=== PATIENT | female | born 1980 | race Caucasian/White ===

== ENCOUNTER 2017-02-20 21:18 | Emergency (ER) | payer SELFPAY ==
[2017-02-20 21:33] VITALS: BP 140/82; PULSE 81; RESP 20; TEMP 99.4; O2SAT 96
[2017-02-20] MEDS ORDERED: Sodium Chloride 0.9% 1,000 ML IV STA (21:56)
[2017-02-20] MEDS ORDERED: cefTRIAXone (Rocephin) 1 gm Inj ONE (22:18)
[2017-02-20 22:22] LABS: BASO # 0.1 K/uL (0.0-0.2); BASO % 0.7 % (0.0-2.0); EOS # 0.1 K/uL (0.0-0.7); EOS % 0.6 % (0.0-4.0); HEMATOCRIT 40.1 % (34.0-47.0); LYMPH # 3.9 K/uL (1.0-4.3); LYMPH % 27.1 % (20.0-40.0); MEAN CELL VOLUME 85.8 fl (81.0-99.0); MEAN CORPUSCULAR HGB CONC 32.7 g/dL (33.0-37.0); MEAN PLATELET VOLUME 11.1 fl (7.2-11.7); MONO # 1.1 K/uL (0.0-0.8); MONO % 7.6 % (0.0-10.0); NEUT # 9.2 K/uL (1.8-7.0); WHITE BLOOD COUNT 14.4 K/uL (4.8-10.8)
[2017-02-20 22:31] LABS: ALB/GLOB RATIO 1.2 (1.0-2.1); ALKALINE PHOSPHATASE 68 U/L (38-126); ALT/SGPT 35 U/L (9-52); AST/SGOT 17 U/L (14-36); BILIRUBIN,TOTAL 0.6 mg/dl (0.2-1.3); BLOOD UREA NITROGEN 12 mg/dl (7-17); CALCIUM 9.5 mg/dL (8.4-10.2); CARBON DIOXIDE 25 mmol/L (22-30); GFR AFRICAN-AMERICAN > 60; GLUCOSE,RANDOM 125 mg/dL (65-105); POTASSIUM 3.8 MMOL/L (3.6-5.0); SODIUM 136 mmol/l (132-148); TOTAL PROTEIN 7.3 G/DL (6.3-8.2)
[2017-02-20 22:34] LABS: VENOUS BLOOD GAS PCO2 44 mmHg (40-60); VENOUS BLOOD PH 7.44 (7.32-7.43)
[2017-02-20 22:40] LABS: RBC URINE 16 /hpf (0-3); URINE BACTERIA RARE (<OCC); URINE BILIRUBIN NEGATIVE (NEGATIVE); URINE BLOOD SMALL (NEGATIVE); URINE COLOR AMBER (YELLOW); URINE GLUCOSE (UA) NEG (Normal); URINE KETONE NEGATIVE (NEGATIVE); URINE LEUKOCYTE ESTERASE MOD Leu/uL (Negative); URINE PROTEIN NEGATIVE (NEGATIVE); WBC URINE 63 /hpf (0-5)
--- NOTE | 2017-02-20 22:46 | ED PDOC ---
HPI: Abdomen Time Seen by Provider: 02/20/17 21:44 Chief Complaint (Nursing): Abdominal Pain Chief Complaint (Provider): Lower abdominal pain History Per: Patient History/Exam Limitations: no limitations Onset/Duration Of Symptoms: Days Outside of [place] travel?: No Current Symptoms Are (Timing): Still Present Location Of Pain/Discomfort: RLQ, LLQ Additional Complaint(s): The patient is a 36yo female, presents to the ED for evaluation of constant lower abdominal pain, worsening over the past two days, associated with dysuria and frequency. She reports her pain is worse on the right side and radiates to her right back. Patient also reports associated chills and nausea, but denies any fever, vomiting, diarrhea, constipation, vaginal discharge or bleeding. Patient offers no additional medical complaints. PCP: Dr. Srikanth Cueto Abnormal Vaginal Bleeding: No Past Medical History Reviewed: Historical Data, Nursing Documentation, Vital Signs Vital Signs: Last Vital Signs Temp 99.4 F 02/20/17 21:31 Pulse 81 02/20/17 21:31 Resp 20 02/20/17 21:31 BP 140/82 02/20/17 21:31 Pulse Ox 96 02/20/17 23:45 - Medical History PMH: No Chronic Diseases - Surgical History Surgical History: No Surg Hx - Family History Family History: States: Unknown Family Hx - Social History Current smoker - smoking cessation education provided: No Alcohol: None Drugs: Denies - Immunization History Hx Tetanus Toxoid Vaccination: No Hx Influenza Vaccination: No Hx Pneumococcal Vaccination: No - Home Medications Home Medications: Ambulatory Orders Medication Instructions Recorded Azithromycin 250 mg PO DAILY #6 tab 05/08/15 Guaifenesin/Codeine Phosphate 10 ml PO Q4H PRN #150 ml 05/08/15 [Guiatuss AC 10 mg/5 ml-100 mg/5 ml 240 ml] Valacyclovir HCl [Valtrex] 1 gm PO Q12 #20 tablet 09/23/15 traMADol [Ultram] 50 mg PO Q6 PRN #10 tab 09/23/15 Nitrofurantoin Macrocrystals 100 mg PO BID #14 cap 11/03/15 [Macrobid] Phenazopyridine [Pyridium] 100 mg PO BID #6 tab 11/03/15 Ciprofloxacin HCl [Cipro] 500 mg PO BID #20 tab 02/20/17 Naproxen [Naprosyn] 1 tab PO BID PRN #60 tab 02/20/17 traMADol [Ultram] 50 mg PO TID PRN #15 tab 02/20/17 - Allergies Allergies/Adverse Reactions: Allergies Allergy/AdvReac Type Severity Reaction Status Date / Time No Known Allergies Allergy Verified 05/08/15 19:17 Review of Systems ROS Statement: Except As Marked, All Systems Reviewed And Found Negative Constitutional: Positive for: Chills. Negative for: Fever Gastrointestinal: Positive for: Nausea, Abdominal Pain. Negative for: Vomiting , Diarrhea, Constipation Genitourinary Female: Positive for: Dysuria, Frequency. Negative for: Vaginal Discharge, Vaginal Bleeding Physical Exam - Reviewed Nursing Documentation Reviewed: Yes Vital Signs Reviewed: Yes - Physical Exam Appears: Positive for: Well, Non-toxic, No Acute Distress Head Exam: Positive for: ATRAUMATIC, NORMAL INSPECTION, NORMOCEPHALIC Skin: Positive for: Warm, Dry ENT: Positive for: Other (dry muc membranes). Negative for: Pharyngeal Erythema , Tonsillar Exudate Neck: Positive for: Painless ROM, Supple Cardiovascular/Chest: Positive for: Regular Rate, Rhythm, Chest Non Tender. Negative for: Murmur Respiratory: Positive for: Normal Breath Sounds. Negative for: Wheezing Gastrointestinal/Abdominal: Positive for: Soft, Tenderness. Negative for: Mass , Distended, Guarding, Rebound Back: Positive for: R CVA Tenderness. Negative for: Vertebral Tenderness Extremity: Positive for: Normal ROM. Negative for: Deformity Lymphatic: Negative for: Adenopathy Neurologic/Psych: Positive for: Alert. Negative for: Motor/Sensory Deficits - Laboratory Results Result Diagrams: 02/20/17 22:17 02/20/17 22:17 - ECG O2 Sat by Pulse Oximetry: 96 (RA) Pulse Ox Interpretation: Normal Medical Decision Making Medical Decision Making: Time: 2200 Impression: UTI and flank pain Plan: -- CT AP -- Labs -- Tylenol -- Zofran -- Toradol -- IV Fluids -- IV Rocephin -- Urine culture -- Blood culture Reassess Labs c/w pyelonephritis. No findings of sepsis EXAM: CT Abdomen and Pelvis Without Intravenous Contrast CLINICAL HISTORY: The patient is a 36 years female; Pain; Abdominal pain; Flank; Right; Additional info: Right flank pain. Sent phy. Doc. 02/20/2017 9:55 PM TECHNIQUE: Axial computed tomography images of the abdomen and pelvis without intravenous contrast. All CT scans at this facility use one or more dose reduction techniques, viz.: automated exposure control; ma/kV adjustment per patient size (including targeted exams where dose is matched to indication; i.e. head); or iterative reconstruction technique. Coronal and sagittal reformatted images were created and reviewed. COMPARISON: No relevant prior studies available. FINDINGS: Limitations: Lack of intravenous contrast limits evaluation for pathology. Lower thorax: <No significant pleural effusions.> ABDOMEN: Liver: Unremarkable. Gallbladder and bile ducts: Unremarkable. No calcified stones. No ductal dilation. Pancreas: Unremarkable. No ductal dilation. Spleen: Unremarkable. No splenomegaly. Adrenals: Unremarkable. No mass. Kidneys and ureters: Right periureteral fat stranding is noted, this could be due to recent passage of calculus versus urinary tract infection. No obstructing stones. No bilateral hydronephrosis. Stomach and bowel: Unremarkable. No dilated bowel loops. Appendix: No findings to suggest acute appendicitis. PELVIS: Bladder: Partially contracted Reproductive: Hypodensity in the uterus, correlate with menstrual history.. ABDOMEN and PELVIS: Intraperitoneal space: Unremarkable. No free air. No significant fluid collection. Bones/joints: No acute fracture. No dislocation. Soft tissues: Moderate fat containing umbilical hernia. Vasculature: See above. Lymph nodes: Unremarkable. No enlarged lymph nodes. IMPRESSION: 1. Lack of intravenous contrast limits evaluation for pathology. 2. Right periureteral fat stranding is noted, this could be due to recent passage of calculus versus urinary tract infection. Clinical correlation is recommended. Thank you for allowing us to participate in the care of your patient. Dictated and Authenticated by: Diana Morrell MD 02/20/2017 11:11 PM Eastern Time ([place] & [place]) Scribe Attestation: Documented by Johana Sullivan acting as a scribe for Nai Garcia MD. Provider Attestation: All medical record entries made by the Scribe were at my direction and personally dictated by me. I have reviewed the chart and agree that the record accurately reflects my personal performance of the history, physical exam, medical decision making, and the department course for this patient. I have also personally directed, reviewed, and agree with the discharge instructions and disposition. Disposition - Clinical Impression Clinical Impression: Pyelonephritis Counseled Patient/Family Regarding: Studies Performed, Diagnosis, Need For Followup, Rx Given - Disposition Referrals: [facility] [Outside] [facility] [Outside] Disposition: Routine/Home Disposition Time: 23:00 Condition: IMPROVED Prescriptions: Ciprofloxacin HCl [Cipro] 500 mg PO BID #20 tab Naproxen [Naprosyn] 1 tab PO BID PRN #60 tab PRN Reason: Pain traMADol [Ultram] 50 mg PO TID PRN #15 tab PRN Reason: SEVERE PAIN ONLY Instructions: Acute Pyelonephritis (ED) Forms: [facility] ED School/Work Excuse Print Language: IRISH
[2017-02-20 22:50] LABS: CHLORIDE 100 mmol/L (98-107)
--- NOTE | 2017-02-21 07:33 | CT ---
PROCEDURE: CT Abdomen and Pelvis without intravenous contrast HISTORY: RIGHT flank pain COMPARISON: None. TECHNIQUE: Technique. Contrast Dose: None Radiation dose: Total exam DLP = 998 mGy-cm. This CT exam was performed using one or more of the following dose reduction techniques: Automated exposure control, adjustment of the mA and/or kV according to patient size, and/or use of iterative reconstruction technique. FINDINGS: LOWER THORAX: Unremarkable. LIVER: Unremarkable. No gross lesion or ductal dilatation. GALLBLADDER AND BILE DUCTS: Gallbladder is decompressed. No radiodense cholelithiasis associated. PANCREAS: Unremarkable. No gross lesion or ductal dilatation. SPLEEN: Unremarkable. ADRENALS: Unremarkable. No mass. KIDNEYS AND URETERS: There is no radiodense urolithiasis appreciated bilaterally or obstructive uropathy. No perinephric fluid collections appreciate bilaterally either. Kidneys appear normal in size overall and the bilateral ureters are normal in caliber as imaged. VASCULATURE: Unremarkable. No aortic aneurysm. BOWEL: The stomach is mildly distended with retained food. No obstruction. No gross mural thickening. APPENDIX: Unremarkable. Normal appendix. PERITONEUM: Unremarkable. No free fluid. No free air. LYMPH NODES: Shotty pericecal lymph nodes are identified. No prominently enlarged lymph nodes are noted in the mesenteric or retroperitoneum. BLADDER: Urinary bladder is essentially decompressed and unremarkable. No radiodense urolithiasis associated. REPRODUCTIVE: Trace fluid is questioned in the endometrial cavity. No prominent suspicious adnexal findings bilaterally. BONES: No acute fracture. OTHER FINDINGS: A small umbilical hernia is identified with the neck measuring 9 mm containing only fat and no bowel. IMPRESSION: 1. No radiodense urolithiasis, obstructive obstructive uropathy or perinephric reaction bilaterally. Urinary bladder is decompressed and unremarkable appearing otherwise. 2. Trace fluid is questioned endometrial cavity. Clinically correlate further. 3. A small fat containing abdominal hernia is appreciated without bowel involvement. Concordant preliminary report by [employer] cynthia performed 02/20/2017.
== END 2017-02-21 00:17 | disposition home or self-care (01) ==
LOC: H.ER 21:18
DX: N10 Acute pyelonephritis (principal)
CPT/HCPCS: 74176; 80053; 81003; 81025; 82803; 85025; 87040; 87086; 96365; 96366; 96368; 96375; 99283; J0696; J1885; J2405; J7040

== ENCOUNTER 2017-07-28 14:25 | Emergency (ER) | payer SELFPAY ==
[2017-07-28 14:35] VITALS: BMI 32.9
[2017-07-28] MEDS ORDERED: Sodium Chloride 0.9% 1,000 ML IV STA (15:09)
--- NOTE | 2017-07-28 15:12 | ED PDOC ---
HPI: CCC, URI, Sore Throat Time Seen by Provider: 07/28/17 14:57 Chief Complaint (Nursing): Fever Chief Complaint (Provider): Generalized malaise, cough History Per: Patient History/Exam Limitations: no limitations Have you had recent travel within the past 21 days to any of the following countries: [place], [place], [place] or [place]?: No Onset/Duration Of Symptoms: Days Current Symptoms Are (Timing): Still Present Additional History Per: Patient Additional Complaint(s): 36yo female no past medical history, presents to ED with complaints of fever, cough, chest pain due to cough, post-tussive vomiting and congestion for the past 3 days. Patient reports the cough is associated with green sputum. States she saw her PCP and has been taking medications with no relief of her symptoms. Denies any abdominal pain, nausea, vomiting, diarrhea, shortness of breath. No other complaints. PCP: Dr. Cueto Past Medical History Reviewed: Historical Data, Nursing Documentation, Vital Signs Vital Signs: Last Vital Signs Temp 100.7 F H 07/28/17 17:46 Pulse 135 H 07/28/17 14:33 Resp 22 07/28/17 14:33 BP 140/82 07/28/17 14:33 Pulse Ox 98 07/28/17 15:14 - Medical History PMH: No Chronic Diseases Denies: Diabetes, HTN - Surgical History Surgical History: No Surg Hx - Family History Family History: States: Unknown Family Hx - Social History Current smoker - smoking cessation education provided: No Alcohol: None Drugs: Denies - Immunization History Hx Tetanus Toxoid Vaccination: No Hx Influenza Vaccination: No Hx Pneumococcal Vaccination: No - Home Medications Home Medications: Ambulatory Orders Medication Instructions Recorded Azithromycin 250 mg PO DAILY #6 tab 05/08/15 Guaifenesin/Codeine Phosphate 10 ml PO Q4H PRN #150 ml 05/08/15 [Guiatuss AC 10 mg/5 ml-100 mg/5 ml 240 ml] Valacyclovir HCl [Valtrex] 1 gm PO Q12 #20 tablet 09/23/15 traMADol [Ultram] 50 mg PO Q6 PRN #10 tab 09/23/15 Nitrofurantoin Macrocrystals 100 mg PO BID #14 cap 11/03/15 [Macrobid] Phenazopyridine [Pyridium] 100 mg PO BID #6 tab 11/03/15 Ciprofloxacin HCl [Cipro] 500 mg PO BID #20 tab 02/20/17 Naproxen [Naprosyn] 1 tab PO BID PRN #60 tab 02/20/17 traMADol [Ultram] 50 mg PO TID PRN #15 tab 02/20/17 Benzonatate [Tessalon Perles] 100 mg PO BID PRN 5 Days sgl 07/28/17 Ibuprofen [Motrin] 600 mg PO TID 7 Days tab 07/28/17 Oseltamivir Phosphate [Tamiflu] 75 mg PO BID 5 Days capsule 07/28/17 - Allergies Allergies/Adverse Reactions: Allergies Allergy/AdvReac Type Severity Reaction Status Date / Time No Known Allergies Allergy Verified 07/28/17 14:32 Review of Systems ROS Statement: Except As Marked, All Systems Reviewed And Found Negative Constitutional: Positive for: Fever, Weakness, Malaise Cardiovascular: Positive for: Chest Pain Respiratory: Positive for: Cough, Sputum (green) Gastrointestinal: Positive for: Vomiting (post tussive). Negative for: Nausea, Abdominal Pain, Diarrhea Physical Exam - Reviewed Nursing Documentation Reviewed: Yes Vital Signs Reviewed: Yes - Physical Exam Appears: Positive for: Non-toxic Head Exam: Positive for: ATRAUMATIC, NORMAL INSPECTION, NORMOCEPHALIC Skin: Positive for: Normal Color Eye Exam: Positive for: EOMI, PERRL ENT: Positive for: Nasal Congestion, Pharyngeal Erythema. Negative for: Tonsillar Exudate, Tonsillar Swelling Neck: Positive for: Supple Cardiovascular/Chest: Positive for: Regular Rate, Rhythm (tachycardic) Respiratory: Positive for: Normal Breath Sounds. Negative for: Wheezing Gastrointestinal/Abdominal: Positive for: Normal Exam, Soft. Negative for: Tenderness, Guarding, Rebound Back: Positive for: Normal Inspection. Negative for: L CVA Tenderness, R CVA Tenderness Extremity: Positive for: Normal ROM. 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 Negative for: Motor/Sensory Deficits - Laboratory Results Result Diagrams: 07/28/17 16:30 07/28/17 16:30 Interpretation Of Abn Labs: no acute - ECG ECG: Positive for: Interpreted By Me, Viewed By Me ECG Rhythm: Positive for: Sinus Tachycardia. Negative for: ST/T Changes O2 Sat by Pulse Oximetry: 98 (RA) Pulse Ox Interpretation: Normal - Radiology X-Ray: Read By Radiologist X-Ray Interpretation: No Acute Disease - Progress ED Course And Treament: 1859: Stable. AAOx3. Pain free. Tolerated PO. Medical Decision Making Medical Decision Making: Impression: Flu like symptoms Plan: -- IV Fluids -- Labs -- Chest x-ray -- Tessalon perles 100mg PO -- Toradol 15mg IVP -- Rapid flu -- Rapid strep Scribe Attestation: Documented by Johana Sullivan acting as a scribe for Fredis Sharma MD. Provider Attestation: All medical record entries made by the Scribe were at my direction and personally dictated by me. I have reviewed the chart and agree that the record accurately reflects my personal performance of the history, physical exam, medical decision making, and the department course for this patient. I have also personally directed, reviewed, and agree with the discharge instructions and disposition. Disposition - Clinical Impression Clinical Impression: URI (upper respiratory infection) - Patient ED Disposition Is Patient to be Admitted: No Counseled Patient/Family Regarding: Studies Performed, Diagnosis, Need For Followup, Rx Given - Disposition Referrals: [facility] [Outside] - 07/31/17 Disposition: Routine/Home Disposition Time: 19:00 Condition: STABLE Additional Instructions: Return if not better in 3 days. Prescriptions: Benzonatate [Tessalon Perles] 100 mg PO BID PRN 5 Days sgl PRN Reason: Cough Ibuprofen [Motrin] 600 mg PO TID 7 Days tab Oseltamivir Phosphate [Tamiflu] 75 mg PO BID 5 Days capsule Instructions: Upper Respiratory Infection (ED) Print Language: SOUTH SUDANESE
--- NOTE | 2017-07-28 17:31 | RAD ---
HISTORY: dyspnea COMPARISON: Comparison is made with 05/08/2015 FINDINGS: LUNGS: No active pulmonary disease. PLEURA: No significant pleural effusion identified, no pneumothorax apparent. CARDIOVASCULAR: Normal. OSSEOUS STRUCTURES: No significant abnormalities. VISUALIZED UPPER ABDOMEN: Normal. OTHER FINDINGS: None. IMPRESSION: No active disease.
[2017-07-28 17:56] LABS: BASO % 0.4 % (0.0-2.0); EOS % 0.1 % (0.0-4.0); HEMOGLOBIN 13.5 g/dL (12.0-16.0); LYMPH # 0.9 K/uL (1.0-4.3); LYMPH % 8.3 % (20.0-40.0); MEAN CELL VOLUME 84.1 fl (81.0-99.0); MEAN CORPUSCULAR HEMOGLOBIN 28.2 pg (27.0-31.0); MEAN CORPUSCULAR HGB CONC 33.6 g/dL (33.0-37.0); MONO # 0.8 K/uL (0.0-0.8); MONO % 7.5 % (0.0-10.0); NEUT # 9.2 K/uL (1.8-7.0); NEUT % 83.7 % (50.0-75.0); PLATELET COUNT 155 K/uL (130-400); RBC 4.79 Mil/uL (3.80-5.20); RED CELL DISTRIBUTION WIDTH 14.7 % (11.5-14.5)
[2017-07-28 18:09] LABS: ALT/SGPT 51 U/L (9-52); AST/SGOT 35 U/L (14-36); BLOOD UREA NITROGEN 6 mg/dl (7-17); CALCIUM 8.9 mg/dL (8.4-10.2); GFR AFRICAN-AMERICAN > 60; GFR NON-AFRICAN AMERICAN > 60
[2017-07-28 19:57] LABS: ANISOCYTOSIS SLIGHT; BANDS 6 % (0-2); LYMPHOCYTE 11 % (20-50); MONOCYTE 9 % (0-10); NEUTROPHIL 74 % (42-75); TOTAL CELLS COUNTED 100
[2017-07-28 19:58] LABS: HYPOCHROMIC SLIGHT; MICROCYTOSIS SLIGHT
[2017-07-28 20:01] LABS: PLATELET ESTIMATE NORMAL (NORMAL)
[2017-07-28 20:02] VITALS: BP 136/79; PULSE 96; RESP 18; TEMP 100.1; O2SAT 99
== END 2017-07-28 20:58 | disposition home or self-care (01) ==
LOC: H.ER 14:25
DX: J06.9 Acute upper respiratory infection, unspecified (principal)
CPT/HCPCS: 71045; 80053; 81025; 84484; 85025; 87070; 87430; 87804; 96374; 99282; J1885; J7040

== ENCOUNTER 2018-09-16 12:34 | Emergency (ER) | payer OTHER ==
[2018-09-16 12:35] VITALS: BMI 32.9
[2018-09-16 13:09] VITALS: PULSE 80
[2018-09-16] MEDS ORDERED: Sodium Chloride 0.9% 1,000 ML IV STA (13:22)
[2018-09-16 13:45] LABS: BASO % 0.4 % (0.0-2.0); EOS % 0.6 % (0.0-4.0); HEMOGLOBIN 13.8 g/dL (12.0-16.0); LYMPH # 2.5 K/uL (1.0-4.3); LYMPH % 34.4 % (20.0-40.0); MEAN CELL VOLUME 85.8 fl (81.0-99.0); MEAN CORPUSCULAR HEMOGLOBIN 28.6 pg (27.0-31.0); MEAN CORPUSCULAR HGB CONC 33.4 g/dL (33.0-37.0); MEAN PLATELET VOLUME 10.6 fl (7.2-11.7); MONO # 0.8 K/uL (0.0-0.8); MONO % 10.5 % (0.0-10.0); NEUT # 3.9 K/uL (1.8-7.0); NEUT % 54.1 % (50.0-75.0); RBC 4.82 Mil/uL (3.80-5.20); RED CELL DISTRIBUTION WIDTH 14.5 % (11.5-14.5); WHITE BLOOD COUNT 7.1 K/uL (4.8-10.8)
[2018-09-16 13:57] LABS: BLOOD UREA NITROGEN 10 mg/dl (7-17); CALCIUM 9.2 mg/dL (8.4-10.2); GFR NON-AFRICAN AMERICAN > 60
--- NOTE | 2018-09-16 14:24 | ED PDOC ---
HPI: Headache Time Seen by Provider: 09/16/18 13:08 Chief Complaint (Nursing): Headache Chief Complaint (Provider): Headache History Per: Patient History/Exam Limitations: no limitations Onset/Duration Of Symptoms: Days (x3) Current Symptoms Are (Timing): Still Present Additional Complaint(s): 37 year old female presents to the ED for evaluation of a left frontal headache similar to episodes in the past for the past three days associated with light headedness. Patient notes she took medication yesterday with no relief. Otherwise, denies worst headache of her life sensation, nausea, vomiting, diarrhea, neck pain, abdominal pain, numbness, tingling, weakness, shortness of breath, and chest pain. PMD: Srikanth Cueto V Past Medical History Reviewed: Historical Data, Nursing Documentation, Vital Signs Vital Signs: Last Vital Signs Temp 98.1 F 09/16/18 13:06 Pulse 80 09/16/18 13:06 Resp 16 09/16/18 13:06 BP 127/85 09/16/18 13:06 Pulse Ox 99 09/16/18 13:06 - Medical History PMH: Migraine Denies: Diabetes, HTN - Surgical History Surgical History: No Surg Hx - Family History Family History: States: Unknown Family Hx - Social History Current smoker - smoking cessation education provided: No Alcohol: None Drugs: Denies - Immunization History Hx Tetanus Toxoid Vaccination: No Hx Influenza Vaccination: No Hx Pneumococcal Vaccination: No - Home Medications Home Medications: Ambulatory Orders Medication Instructions Recorded Azithromycin 250 mg PO DAILY #6 tab 05/08/15 Guaifenesin/Codeine Phosphate 10 ml PO Q4H PRN #150 ml 05/08/15 [Guiatuss AC 10 mg/5 ml-100 mg/5 ml 240 ml] Valacyclovir HCl [Valtrex] 1 gm PO Q12 #20 tablet 09/23/15 traMADol [Ultram] 50 mg PO Q6 PRN #10 tab 09/23/15 Nitrofurantoin Macrocrystals 100 mg PO BID #14 cap 11/03/15 [Macrobid] Phenazopyridine [Pyridium] 100 mg PO BID #6 tab 11/03/15 Ciprofloxacin HCl [Cipro] 500 mg PO BID #20 tab 02/20/17 Naproxen [Naprosyn] 1 tab PO BID PRN #60 tab 02/20/17 traMADol [Ultram] 50 mg PO TID PRN #15 tab 02/20/17 Benzonatate [Tessalon Perles] 100 mg PO BID PRN 5 Days sgl 07/28/17 Ibuprofen [Motrin] 600 mg PO TID 7 Days tab 07/28/17 Oseltamivir Cap [Tamiflu] 75 mg PO BID #10 cap 07/28/17 Oseltamivir Phosphate [Tamiflu] 75 mg PO BID 5 Days capsule 07/28/17 Metoclopramide [Reglan] 10 mg PO DAILY PRN 5 Days tab 09/16/18 - Allergies Allergies/Adverse Reactions: Allergies Allergy/AdvReac Type Severity Reaction Status Date / Time No Known Allergies Allergy Verified 07/28/17 14:32 Review of Systems ROS Statement: Except As Marked, All Systems Reviewed And Found Negative Constitutional: Negative for: Weakness Cardiovascular: Negative for: Chest Pain Respiratory: Negative for: Shortness of Breath Gastrointestinal: Negative for: Nausea, Vomiting, Abdominal Pain, Diarrhea Musculoskeletal: Negative for: Neck Pain Neurological: Positive for: Headache (left frontal). Negative for: Numbness (and tingling) Physical Exam - Reviewed Nursing Documentation Reviewed: Yes Vital Signs Reviewed: Yes - Physical Exam Appears: Positive for: No Acute Distress Head Exam: Positive for: ATRAUMATIC, NORMAL INSPECTION, NORMOCEPHALIC Skin: Positive for: Normal Color, Warm, Dry. Negative for: Rash Eye Exam: Positive for: Normal appearance, EOMI, PERRL ENT: Positive for: Normal ENT Inspection Neck: Positive for: Normal, Painless ROM, Supple Cardiovascular/Chest: Positive for: Regular Rate, Rhythm Respiratory: Positive for: Normal Breath Sounds. Negative for: Respiratory Distress Gastrointestinal/Abdominal: Positive for: Normal Exam, Soft. Negative for: Tenderness Back: Negative for: Vertebral Tenderness Extremity: Positive for: Normal ROM (all extremities) Neurological/Psych: Positive for: Awake, Alert, Normal Tone, Symmetric/Intact Strength (bilateral upper and lower extremities), Oriented (x3), Gait (steady in ED), Cerebellar Tests (normal), order filler II-XII (intact), Other (negative brudzinski and kernig signs). Negative for: Motor/Sensory Deficits, Facial Droop - Laboratory Results Result Diagrams: 09/16/18 13:40 09/16/18 13:40 Lab Results: no acute - ECG O2 Sat by Pulse Oximetry: 99 (RA) Pulse Ox Interpretation: Normal - Progress ED Course And Treament: 1515: Stable. AAOx3. Pain free. Tolerated PO. FU with pcp. Medical Decision Making Medical Decision Making: Time: 1321 Initial Impression: headache Initial Plan: --EKG --BMP --U-preg --CBC with differential --Normal saline IV --Reglan 10mg IV --Toradol 15mg IVP --Reevaluation Scribe Attestation: Documented by Ashlyn Grajeda, acting as a scribe for Fredis Sharma MD. Provider Scribe Attestation: All medical record entries made by the Scribe were at my direction and personally dictated by me. I have reviewed the chart and agree that the record accurately reflects my personal performance of the history, physical exam, medical decision making, and the department course for this patient. I have also personally directed, reviewed, and agree with the discharge instructions and disposition. Disposition - Clinical Impression Clinical Impression: Headache - Patient ED Disposition Is Patient to be Admitted: No Counseled Patient/Family Regarding: Studies Performed, Diagnosis, Need For Followup, Rx Given - Disposition Referrals: [facility] [Outside] - 09/17/18 Disposition: Routine/Home Disposition Time: 15:16 Condition: STABLE Additional Instructions: Return if not better in 3 days. Prescriptions: Metoclopramide [Reglan] 10 mg PO DAILY PRN 5 Days tab PRN Reason: Headache Instructions: Headache, Adult (DC) Forms: [facility] ED School/Work Excuse Print Language: [place]
[2018-09-16 16:13] VITALS: BP 130/80; RESP 15; TEMP 98.2; O2SAT 100
--- NOTE | 2018-09-17 09:20 | CARD ---
APPROVED REPORT Date of service: 09/16/2018 EKG Measurement Heart [id number] <Conclusion> Normal sinus rhythm Normal ECG
== END 2018-09-16 15:30 | disposition home or self-care (01) ==
LOC: H.ER 12:34
DX: R51 Headache (principal)
CPT/HCPCS: 80048; 81025; 85025; 93005; 96374; 99285; J1885; J2765; J7030